=== PATIENT | female | born 1980 | race Caucasian/White ===

== ENCOUNTER → 2018-06-23 06:12 | Emergency (ER) | payer OTHER ==
--- NOTE | 2018-06-23 07:33 | ED ---
- HPI Summary HPI Summary: Pt. is a 38 y.o female who presents to the ER for vaginal bleeding. Pt. states she has had a demise at around 7 weeks. She last saw OB 05/29 and wanted to try to pass fetus naturally. Pt. states she has had some light bleeding for about a week that increased today with clots. Pt. notes intermittent abdominal cramping. She notes dizziness with changing position but otherwise denies syncope, CP, or SOB. Symptoms are moderate in severity. No past medical hx. A1. - History of Current Complaint Chief Complaint: EDVaginalBleeding Stated Complaint: VAGINAL BLEEDING PER PT Time Seen by Provider: 06/23/18 07:31 Hx Obtained From: Patient Pain Intensity: 4 - Allergies/Home Medications Allergies/Adverse Reactions: Allergies Allergy/AdvReac Type Severity Reaction Status Date / Time No Known Allergies Allergy Verified 06/23/18 06:17 PMH/Surg Hx/FS Hx/Imm Hx Previously Healthy: Yes Infectious Disease History: No Infectious Disease History: Denies: Traveled Outside the in Last 30 Days - Family History Known Family History: Positive: Non-Contributory - Social History Occupation: Employed Full-time Lives: With Family Alcohol Use: None Substance Use Type: Reports: None Smoking Status (MU): Never Smoked Tobacco Review of Systems Constitutional: Negative Negative: Fever, Chills Cardiovascular: Negative Negative: Chest Pain Respiratory: Negative Negative: Shortness Of Breath Gastrointestinal: Negative Positive: Abdominal Pain Positive: other - vaginal bleeding All Other Systems Reviewed And Are Negative: Yes Physical Exam - Physical Exam Triage Information Reviewed: Yes Vital Signs Reviewed: Yes Appearance: Positive: Well-Appearing - Pt. sitting up in bed in NAD. Family present. Skin: Positive: Warm, Dry Head/Face: Positive: Normal Head/Face Inspection Eyes: Positive: Normal, EOMI Neck: Positive: Supple Respiratory/Lung Sounds: Positive: Clear to Auscultation, Breath Sounds Present Cardiovascular: Positive: Normal, RRR Abdomen Description: Positive: Nontender, Soft Pelvic Exam: Other - Exam performed with nurse in room[facility]elia. Speculum exam reveals a small amount of bright red blood in voult. Cervix is slighly dilated and clear. No tissue material or clots noted. Neurological: Positive: Normal, CN Intact II-III Psychiatric: Positive: Affect/Mood Appropriate Diagnostics - Vital Signs Vital Signs Temp Pulse Resp BP Pulse Ox 04/12/19 06:12 97.5 F 110 16 111/77 100 - Laboratory Result Diagrams: 06/23/18 07:42 Lab Statement: Any lab studies that have been ordered have been reviewed, and results considered in the medical decision making process. Course/Dx - Course Course Of Treatment: Pt. presenting for evaluation of increased vaginal bleeding with known demise. Afebrile with stable VS. Benign abd. exam. CBC shows stable H and H. Blood type O+. Pelvic exam shows mild bleeding without tissue or clots. Repeat u/s: IMPRESSION: THICKENED, HETEROGENEOUS ENDOMETRIUM. NO INTRAUTERINE GESTATION IS IDENTIFIED. THE. DIFFERENTIAL INCLUDES EARLY INTRAUTERINE GESTATION, MISSED , OR ECTOPIC . RECOMMEND CORRELATION WITH SERIAL BETA-HCG LEVELS AND FOLLOW-UP IMAGING. Pelvic U/S per radiology: IMPRESSION: THICKENED, HETEROGENEOUS ENDOMETRIUM. NO INTRAUTERINE GESTATION IS IDENTIFIED. THE. DIFFERENTIAL INCLUDES EARLY INTRAUTERINE GESTATION, MISSED , OR ECTOPIC . RECOMMEND CORRELATION WITH SERIAL BETA-HCG LEVELS AND FOLLOW-UP IMAGING. I spoke with son SALGADO, Dr. Pritchard,and he will follow pt. up in office. Advised pt. to increase fluids and rest. Tylenol or motrin for pain as directed. TO return to ER for heavier bleeding, syncope, fever, severe abd. pain. Pt. understands and agrees with plan. - Differential Diagnosis/HQI/PQRI: Incomplete , Missed - Diagnoses Provider Diagnoses: Miscarriage Discharge - Sign-Out/Discharge Documenting (check all that apply): Patient Departure Patient Received Moderate/Deep Sedation with Procedure: No - Discharge Plan Condition: Good Disposition: HOME Patient Education Materials: Miscarriage (ED) Referrals: Taisha Heller MD [Primary Care Provider] - Gil Krishna MD [Medical Doctor] - Additional Instructions: Call Dr. Krishna's office today to schedule a close follow up appointment Increase fluids and rest Can take Tylenol or Motrin for pain as directed Return to ER if symptoms change or worsen - Billing Disposition and Condition Condition: GOOD Disposition: Home
[2018-06-23 07:59] LABS: ABS Basophils 0 10^3/ul (0-0.2); ABS Eosinophils 0.1 10^3/ul (0-0.6); ABS Lymphocytes 1.3 10^3/ul (1.0-4.8); ABS Monocytes 0.5 10^3/ul (0-0.8); ABS Neutrophils 7.2 10^3/ul (1.5-7.7); ABS Nucleated RBC 0 10^3/ul; Eosinophil % 1.1 %; Hematocrit 37 % (33-41); Hemoglobin 12.8 g/dL (12.0-16.0); Lymphocyte % 14.2 %; Mean Corpuscular HGB Conc 34 g/dL (31-36); Mean Corpuscular Hemoglobin 29 pg (27-31); Mean Corpuscular Volume 85 fL (80-97); Mean Platelet Volume 8.5 fL (7.4-10.4); Nucleated Red Blood Cells % 0; Platelet Count 207 10^3/uL (150-450); Red Blood Count 4.41 10^6 /uL (3.70-4.87); Red Cell Distribution Width 13 % (10.5-15); White Blood Count 9.1 10^3/uL (3.5-10.8)
[2018-06-23 10:01] VITALS: BP 0/0
[2018-06-23 10:30] LABS: Urine Appearance Cloudy; Urine Bacteria Absent (Absent); Urine Bilirubin Negative (Negative); Urine Blood 3+ (Negative); Urine Glucose Negative (Negative); Urine Ketones Negative (Negative); Urine Nitrite Negative (Negative); Urine Protein 2+(100 mg/dL) (Negative); Urine Red Blood Cell 3+(>10/hpf) (Absent); Urine Specific Gravity 1.018 (1.010-1.030); Urine Urobilinogen Negative (Negative); Urine White Blood Cell Absent (Absent)
[2018-06-23 10:43] LABS: Urine Color Red
== END | disposition home or self-care (01) ==
LOC: ED 06:12
DX: O03.9 Complete or unspecified spontaneous abortion without complication (principal); Z3A.13 13 weeks gestation of pregnancy
CPT/HCPCS: 36415; 76817; 81003; 81015; 84702; 85025; 86900; 86901; 87086; 99282

== ENCOUNTER 2019-04-14 19:13 | Inpatient (IN) | payer OTHER ==
[2019-04-14 21:17] LABS: Urine Benzodiazepine Screen None Detected (None Detect); Urine Buprenorphine Screen None Detected (None Detect); Urine Hydrocodone Screen None Detected (None Detect); Urine Opiates Screen None Detected (None Detect)
[2019-04-14] MEDS ORDERED: Glycerin ADULT SUPP PR PRN (21:58)
[2019-04-14] MEDS ORDERED: Witch Hazel PAD* JAR TOPICAL PRN (21:58)
[2019-04-14] MEDS ORDERED: Acetaminophen TAB* 325 MG PO PRN (21:58)
[2019-04-14] MEDS ORDERED: Dibucaine 1% 28.35 GM TUBE PR PRN (21:58)
[2019-04-14] MEDS ORDERED: Lactated Ringers 1000 ML Bag* 1,000 ML IV SCH (22:00)
--- NOTE | 2019-04-14 22:01 | PROCNOTE ---
[facility] OB: Delivery Note - Delivery A Date of : 04/14/19 Time of : 21:09 [place] Sex: Male Weight at : 6 lb 12 oz Score 1 Minute: 9 Score 5 Minutes: 9 Gestational Age in Weeks and Days at Delivery: 38 Weeks and 4 Days Delivery Method: Spontaneous Vaginal Labor: Spontaneous Did Patient attempt ?: N/A, No Previous Amniotic Fluid: Meconium Anesthesia/Analgesia: Nitrous-Labor Delivered By: Jackie Duggan Nursery Level of Nursery: Regular/Bedside - Perineum Perineal Injury: 1st Degree Perineal Repair: By Delivering Practioner - Events Delivery Events of Note: Precipitous Delivery - Additional Delivery Notes Additional Delivery Notes: Normal spontaneous vertex delivery of live male, Apgars 9/9. Delivered OA, no nuchal cord, meconium stained fluid. Body delivered without difficulty. Baby placed on mothers abdomen. Cord clamped and cut by FOB after pulsations ceased. Placenta delivered spontaneously via maharaj, appears intact, 3vc.Perineum and vagina inspected - first degree perineal laceration noted. Repaired in the usual fashion with 3-0 rapide. Laceration hemostatic, anatomy restored. EBL 400mL. Mom and baby stable at time of note. Baby attempting to breastfeed.
[2019-04-14] MEDS: Ibuprofen TAB* 600 MG PO SCH (22:59)
[2019-04-14] MEDS ORDERED: Lidocaine 1% INJ* 10 MG/ML 30 ML SDV ONE (23:31)
[2019-04-15] MEDS: Ibuprofen TAB* 600 MG PO SCH ×3 (04:38→20:33)
[2019-04-15 08:00] LABS: ABS Basophils 0.1 10^3/ul (0-0.2); ABS Lymphocytes 1.8 10^3/ul (1.0-4.8); ABS Monocytes 0.7 10^3/ul (0-0.8); ABS Neutrophils 10.1 10^3/ul (1.5-7.7); Eosinophil % 0.4 %; Hematocrit 40 % (35-47); Hemoglobin 13.8 g/dL (12.0-16.0); Lymphocyte % 14.1 %; Mean Corpuscular HGB Conc 34 g/dL (31-36); Mean Corpuscular Hemoglobin 30 pg (27-31); Mean Corpuscular Volume 86 fL (80-97); Mean Platelet Volume 8.7 fL (7.4-10.4); Platelet Count 184 10^3/uL (150-450); Red Blood Count 4.67 10^6 /uL (3.70-4.87); Red Cell Distribution Width 14 % (10-15); White Blood Count 12.7 10^3/uL (3.5-10.8)
[2019-04-15] MEDS ORDERED: Simethicone TAB* 80 MG TAB.CHEW PO SCH (08:30)
[2019-04-15] MEDS ORDERED: Ferrous Gluconate TAB* 324 MG TAB PO SCH (09:00)
[2019-04-15] MEDS: Docusate CAP* 100 MG PO SCH ×3 (12:23→20:33)
[2019-04-16 07:44] VITALS: BP 106/70
[2019-04-16] MEDS: Docusate CAP* 100 MG PO SCH (08:10)
[2019-04-16] MEDS: Ibuprofen TAB* 600 MG PO SCH (08:11)
[2019-04-18] MEDS ORDERED: Lactated Ringers 1000 ML Bag* 1,000 ML IV ONE (11:57)
[2019-04-18] MEDS ORDERED: Buffered Lidocaine 1% SYRIN* 1 ML/SYRINGE INTRADERM ONE (11:57)
--- NOTE | 2019-04-18 11:57 | HP ---
General Information - Reason for Visit 39yo, IUP@38+4 here in active labor - General Information Maternal Age: 39 Grav: 4 Para: 1 SAB: 1 IEA: 1 Estimated Due Date: 04/24/19 Determined By: Early Ultrasound Gestational Age in Weeks/Days: 38+4 Maternal Blood Type and Rh: O Positive - Results this Serology/RPR Result: Non-Reactive Rubella Result: Immune HBsAg Result: Negative HIV Result: Negative GBS Culture Result: Negative Past Medical History Delivery History: Hx Uncomplicated Vaginal Delivery Pertinent Past Medical History: Non-Contributory Pertinent Past Surgical History: None Pertinent Family History: Non-Contributory - Antepartal Records Antepartal Records: Reviewed, Complicated by: - AMA 39 at [facility] Review of Systems Constitutional: Uncomfortable CV Complaint: No Respiratory: Shortness of Breath: No Gastrointestinal: No Nausea/Vomiting, Normal Bowel Movement Genitourinary: Leaking Fluid, No Dysuria, Spotting Musculoskeletal: Back Pain, Contractions Neurological: No Headache, No Visual Changes Movement: Normal Exam Allergies/Adverse Reactions: Allergies No Known Allergies Allergy (Verified 04/14/19 20:06) Lab Values - Entire Visit: Laboratory Tests 04/14/19 04/15/19 20:47 07:51 WBC 12.7 H RBC 4.67 Hgb 13.8 Hct 40 MCV 86 MCH 30 MCHC 34 RDW 14 Plt Count 184 MPV 8.7 Neut % (Auto) 79.5 Lymph % (Auto) 14.1 [place] % (Auto) 5.5 Eos % (Auto) 0.4 Baso % (Auto) 0.5 Absolute Neuts (auto) 10.1 H Absolute Lymphs (auto) 1.8 Absolute Monos (auto) 0.7 Absolute Eos (auto) 0.0 Absolute Basos (auto) 0.1 Absolute Nucleated RBC 0.0 Nucleated RBC % 0.0 Urine Opiates Screen None detected Buprenorphine Screen None detected Hydrocodone Screen None detected Ur Oxycodone Screen None detected Urine Methadone Screen None detected U Fentanyl Presumptive None detected Ur Barbiturates Screen None detected Ur Phencyclidine Immuno None detected Ur Amphetamines Screen None detected U Benzodiazepines Scrn None detected Urine Cocaine Screen None detected U Cannabinoids Screen None detected - Measurements Height: 5 ft 4 in Weight: 145 lb 5.115 oz Weight in lbs: 145.445294 Body Mass Index (BMI): 24.9 Pre- Weight: 120 lb Weight Gained This : 25.319 lbs and 0.011 ozs - Exam Breast: Breast Exam Deferred CVA: No CVA Tenderness Extremities: No Edema Heart: Normal Rhythm/Heart Sounds HEENT: No Significant Findings Lungs: Clear Bilaterally Rectal: Rectal Exam Deferred Reflexes: DTR 2+ - Abdominal Exam Abdomen Exam: Non-Tender - Ultrasound/Biophysical Profile Ultrasound Status: Not Done Targeted Exam Findings See L&D Outpatient Visit Provider Note for Findings: Yes Estimated Weight: 7.5 lbs Cervical Exam: 4cm, 5cm Effacement: 100% Station: -1 Presenting Part: Vertex Membrane Status: Intact Bleeding/Discharge: Bloody Show EFM Findings - External Monitor Findings Baseline Heart Rate: 140 External Monitor Findings: Accelerations Present, No Pattern of Variable or Late Decelerations, Variability Moderate, Baseline Stable External Monitor Findings Comment: No evidence of metabolic acidemia Contractions: Regular, Moderate, Strong, 45-90 Seconds Assessment/Plan - Assessment IUP@38+4 in active labor GBS negative, uncomplicated No evidence of metabolic acidemia Regular contractions Declines pain medication - Plan Plan: Admit - Anticipate Vaginal Delivery Plan Comment: Anticipate progression to - Date/Time of Admission Date of Admission: 04/14/19 Time of Admission: 19:30
[2019-04-18] MEDS ORDERED: Lactated Ringers 1000 ML Bag* 1,000 ML IV SCH (12:00)
== END 2019-04-16 13:15 | disposition home or self-care (01) | DRG 807 ==
LOC: MCHOBOUT 19:13 → MCHOB 19:38
PROVIDERS: ADMIT Advanced Practice Midwife; ATTEND Advanced Practice Midwife
PROC: 10E0XZZ Delivery of Products of Conception, External Approach (ICD-10-PCS; principal; 2019-04-14)
PROC: 4A1HXCZ Monitoring of Products of Conception, Cardiac Rate, External Approach (ICD-10-PCS; 2019-04-14)
PROC: 0HQ9XZZ Repair Perineum Skin, External Approach (ICD-10-PCS; 2019-04-14)
DX: O62.3 Precipitate labor (principal); Z37.0 Single live birth; Z3A.38 38 weeks gestation of pregnancy; O77.0 Labor and delivery complicated by meconium in amniotic fluid; O70.0 First degree perineal laceration during delivery
CPT/HCPCS: 36415; 80307; 85025; A9270-GY; G0480